=== PATIENT | female | born 1945 | race Caucasian/White ===

== ENCOUNTER 2017-06-19 14:45 | Outpatient (RCR) | payer MEDICARE, BC ==
[~2017-06-19 14:45] MED LIST: ALEVE 220MG220 MG PO; ANTIVERT 25MG25 MG PO; ASPI325T6; ASPI325T6 PO; COMBIGAN 0.2%-010 ML OU; DULCOLAX S10 MG/SUPP RC; HCTZ12.5TAB PO; INDERAL 20MG20 MG PO; LIQUIFILM TEARS15 ML OU; MILK OF MA400 MG/52 PO; MIRAPEX0.5 MG PO; NORCO 325 MG-7.1 TAB PO; ROXICODONE 55 MG/TAB PO; SENOKOT8.6 MG; THERATEARS 15 M15 ML OP; TYLENOL 500MG500 MG PO; ULTRAM 50MG TAB50 MG PO; XALATAN EYE DROPS OU; ZANTAC 150MG T150 MG PO
== END 2017-07-04 10:10 | disposition still patient (30) ==
LOC: WSPT 14:45
DX: M54.40 Lumbago with sciatica, unspecified side (principal); R26.89 Other abnormalities of gait and mobility; Z96.612 Presence of left artificial shoulder joint; Z96.611 Presence of right artificial shoulder joint
CPT/HCPCS: G8978-GP; G8979-GP

== ENCOUNTER 2019-07-20 06:18 | Emergency (ER) | payer MEDICARE, BC ==
[~2019-07-20] VITALS: Ht 167.6 cm; Wt 86.4 kg
[2019-07-20 06:28] VITALS: TEMP 98.4
[2019-07-20 07:23] LABS: COLLECTION METHOD CLEAN CATCH
[2019-07-20 07:33] LABS: MUCOUS Present /lpf; PH 6 (5-8); SQUAMOUS EPITHELIAL None Seen /hpf; URINE APPEARANCE Clear; URINE BACTERIA None Seen /hpf; URINE BILIRUBIN Negative (NEGATIVE); URINE BLOOD Negative (NEGATIVE); URINE COLOR Yellow; URINE GLUCOSE Negative (NEGATIVE); URINE KETONE Negative (NEGATIVE); URINE LEUKOCYTE ESTERASE Negative (NEGATIVE); URINE NITRATE Negative (NEGATIVE); URINE PROTEIN(semi-quant) Negative (NEGATIVE); URINE RBC 0-2 /hpf; URINE UROBILINOGEN Negative (NEGATIVE)
[2019-07-20 07:46] LABS: PROTHROMBIN TIME 11.7 SECONDS (9.7-12.8)
[2019-07-20 07:50] LABS: ALANINE AMINOTRANSFERASE 17 U/L (9-52); ALBUMIN 4.9 gm/dL (3.5-5.0); ALKALINE PHOSPHATASE 147 U/L (50-136); ANION GAP 10 mmol/L (7-16); AST,SGOT 24 U/L (15-37); BILIRUBIN,TOTAL 0.6 mg/dL (0.0-1.0); BLOOD UREA NITROGEN 27 mg/dL (7-17); CALCIUM 10.6 mg/dL (8.4-10.2); CARBON DIOXIDE 30 mmol/L (22-30); CHLORIDE 101 mmol/L (98-107); CREATININE, serum 0.93 (0.52-1.25); GLUCOSE 115 mg/dL (74-106); POTASSIUM 4.1 mmol/L (3.4-5.0); SODIUM 140 mmol/L (137-145); TOTAL PROTEIN 8.7 gm/dL (6.4-8.2)
[2019-07-20 07:56] LABS: BASO % 0.5 % (0.0-2.0); EOS # 0.3 (0.0-0.7); EOS % 3.4 % (0-4.0); GRAN # 5.4 (1.4-6.5); GRAN % 68.1 % (42.2-75.2); HEMATOCRIT 39.5 % (37.0-47.0); HEMOGLOBIN 12.5 g/dl (12.5-16.0); LYMPH # 1.6 (1.2-3.4); LYMPH % 19.7 % (20.0-51.0); MEAN CELL VOLUME 93 fl (80.0-100.0); MEAN CORPUSCULAR HEMOGLOBIN 29 pg (27.0-31.0); MEAN CORPUSCULAR HGB CONC 32 g/dl (33.0-37.0); MEAN PLATELET VOLUME 10.4 fl (7.4-10.4); MONO # 0.6 (0.1-0.6); PLATELET COUNT 355 K/mm3 (130-400); RED BLOOD COUNT 4.27 M/mm3 (4.10-5.30); REDCELL DISTRIBUTION WIDTH-CV 14.7 % (11.5-14.5)
[2019-07-20] MEDS ORDERED: WELLBUTRIN 75MG75 MG PO (08:00)
[2019-07-20] MEDS ORDERED: MELATONIN5 M1 SL (08:00)
[2019-07-20] MEDS ORDERED: ASPIRIN 81M81 MG/TA2 PO (08:01)
[2019-07-20 08:03] LABS: TROPONIN-I < 0.012 ng/mL (0.000-0.035)
[2019-07-20] MEDS ORDERED: NUPLAZID34 MG PO (08:13)
[2019-07-20] MEDS ORDERED: ZANTAC 150MG T150 MG PO (08:15)
[2019-07-20] MEDS ORDERED: PRIL40 PO (08:16)
[2019-07-20] MEDS ORDERED: MOBIC15 MG PO (08:17)
[2019-07-20] MEDS ORDERED: MIRAPEX 1MG PO (08:17)
[2019-07-20] MEDS ORDERED: DITROPAN 5MG TAB5 MG PO (08:17)
[2019-07-20] MEDS ORDERED: HCTZ12.5TAB PO (08:18)
[2019-07-20] MEDS ORDERED: SENNA-S 50 MG-81 TAB PO (08:19)
[2019-07-20] MEDS ORDERED: ZAROXOLYN 2.52.5 MG PO (08:19)
[2019-07-20] MEDS ORDERED: SINEMET CR 50 M1 TER PO (08:20)
[2019-07-20] MEDS ORDERED: CYMBALTA 30MG30 MG PO (08:21)
--- NOTE | 2019-07-20 09:04 | NUR ---
KARMA carey responded to an emergency department consult for the patient due to multiple falls at home with no injuries. KARMA met with the patient and her caregiver, Sandee from [facility]. The patient lives alone five miles outside of [place] and reports her nearest neighbor is half mile away. KARMA student confirmed patient demographics are current. The patient uses a cane at home and a walker when she goes out into the community. The patient and Sandee report the patient cannot use the walker in the home due to having lots of possessions. The patient does not have advanced directives in the electronic medical record but reports they are completed and designate her neice, Sravani Benavides from [place]. The patient reports that Sandee assist with laundry, cooking and drives the patient to appointments. The patient reports she has outpatient physical therapy in [place]. The patient reports she has a brother and two nephews in [place]. KARMA student inquired about her fall. The patient reports she is not always hungry. KARMA student discuss nutritional supplements such as Boost or Ensure. KARMA carey also provided the patient the phone number to our nutritional department if she has any further questions. KARMA carey provided education and several pamphlets for medical alert companies. The patient reports her family has talked about medical alert companies in the past. The patient reports her brother uses a medical alert company and has wanted her to get services. KARMA carey provided information on assisted living facilites in [place] and [place]. Sandee reports the patient's brother and [facility] have discussed assisted living placement in the past. The patient has not wanted to move. KARMA student ask the patient's permission to contact [facility] about current ED visit. The patient did not give KARMA student permission. The patient reports she wants to contact [facility] and brother herself after finding out results of the ED visit. Sandee reports that the family and [facility] have wanted a higher level of care for the patient but the patient has not wanted to move to a facility. KARMA carey collaborated the above information with the patient's nurse and disease case manager rn.
[2019-07-20 09:44] VITALS: BP 147/78; PULSE 75
--- NOTE | 2019-07-20 10:55 | NUR ---
Worker confirmed that the patient does not have home health services with [facility], [facility] or [facility]. KARMA carey contacted the patient's PCP, Dr. Martin and spoke to MONO Phillips. She reports that the patient does not have home health orders through their office. The patient has a yearly physical scheduled on 07/27. KARMA carey contacted Susan the care transition manager at the clinic and left a message. KARMA carey will continue to follow.
--- NOTE | 2019-07-21 09:16 | NUR ---
KARMA student spoke with Susan, insurance healthcare consultant with Dr. Martin office, 07/20. KARMA student informed Susan of the families concerns need for a higher level of care for the patient and also the resources student provided. Susan will meet with the patient on 07/27 and she is to arrange a family meeting. There are no additional needs at this time.
== END 2019-07-20 10:18 | disposition home or self-care (01) ==
LOC: COL.ER 06:18
PROVIDERS: Emergency Medicine
DX: R53.1 Weakness (principal); I10 Essential (primary) hypertension; Z79.82 Long term (current) use of aspirin; Z91.81 History of falling

== ENCOUNTER 2019-08-02 21:09 | Observation (INO) | payer MEDICARE, BC ==
[~2019-08-02] VITALS: Ht 167.6 cm; Wt 88.0 kg
[~2019-08-02 21:09] MED LIST changes: +ASPIRIN 81M81 MG/TA2 PO; +CYMBALTA 30MG30 MG PO; +DITROPAN 5MG TAB5 MG PO; +MELATONIN5 M1 SL; +MIRAPEX 1MG PO; +MOBIC15 MG PO; +NUPLAZID34 MG PO; +PRIL40 PO; +SENNA-S 50 MG-81 TAB PO; +SINEMET CR 50 M1 TER PO; +WELLBUTRIN 75MG75 MG PO; +ZAROXOLYN 2.52.5 MG PO
[2019-08-02 21:38] LABS: COLLECTION METHOD CLEAN CATCH
[2019-08-02 21:43] LABS: PH 5 (5-8); SQUAMOUS EPITHELIAL 0-2 /hpf; URINE APPEARANCE Clear; URINE BACTERIA None Seen /hpf; URINE BILIRUBIN Negative (NEGATIVE); URINE BLOOD Negative (NEGATIVE); URINE COLOR Yellow; URINE GLUCOSE Negative (NEGATIVE); URINE KETONE Negative (NEGATIVE); URINE LEUKOCYTE ESTERASE Negative (NEGATIVE); URINE NITRATE Negative (NEGATIVE); URINE PROTEIN(semi-quant) Negative (NEGATIVE); URINE RBC 0-2 /hpf; URINE UROBILINOGEN Negative (NEGATIVE)
[2019-08-02] MEDS ORDERED: FIBERCON (22:01)
[2019-08-02 22:09] LABS: BASO % 0.3 % (0.0-2.0); EOS # 0.3 (0.0-0.7); GRAN # 6.1 (1.4-6.5); GRAN % 65.6 % (42.2-75.2); HEMOGLOBIN 11.5 g/dl (12.5-16.0); LYMPH # 1.9 (1.2-3.4); LYMPH % 20.7 % (20.0-51.0); MEAN CELL VOLUME 92 fl (80.0-100.0); MEAN CORPUSCULAR HEMOGLOBIN 30 pg (27.0-31.0); MEAN CORPUSCULAR HGB CONC 32 g/dl (33.0-37.0); MEAN PLATELET VOLUME 10.4 fl (7.4-10.4); MONO # 0.9 (0.1-0.6); MONO % 10.1 % (1.7-9.3); PLATELET COUNT 295 K/mm3 (130-400); RED BLOOD COUNT 3.87 M/mm3 (4.10-5.30); REDCELL DISTRIBUTION WIDTH-CV 14.3 % (11.5-14.5)
[2019-08-02 22:10] LABS: HEMATOCRIT 35.7 % (37.0-47.0)
[2019-08-02 22:23] LABS: ALANINE AMINOTRANSFERASE 22 U/L (9-52); ALBUMIN 4.5 gm/dL (3.5-5.0); ALKALINE PHOSPHATASE 144 U/L (50-136); ANION GAP 10 mmol/L (7-16); AST,SGOT 21 U/L (15-37); BILIRUBIN,TOTAL 0.5 mg/dL (0.0-1.0); BLOOD UREA NITROGEN 26 mg/dL (7-17); C-REACTIVE PROTEIN 0.7 mg/dL (0.0-0.9); CALCIUM 9.9 mg/dL (8.4-10.2); CARBON DIOXIDE 28 mmol/L (22-30); CHLORIDE 101 mmol/L (98-107); CREATININE, serum 0.89 (0.52-1.25); GLUCOSE 108 mg/dL (74-106); POTASSIUM 4.1 mmol/L (3.4-5.0); SODIUM 138 mmol/L (137-145); TOTAL PROTEIN 7.9 gm/dL (6.4-8.2)
[2019-08-02 22:34] LABS: TROPONIN-I < 0.012 ng/mL (0.000-0.035)
[2019-08-02 23:25] LABS: ACETAMINOPHEN < 10 ug/mL (10-30); ALCOHOL(ethanol),MEDICAL < 10 mg/dL; SALICYLATE < 1.0 mg/dL
[2019-08-02 23:32] LABS: TRICYCLIC ANTIDEPRESS URINE NEGATIVE
[2019-08-03] VITALS (7 sets, daily range): BP systolic 124–180; BP diastolic 49–83; PULSE 67–78; TEMP 97.6–98.5
[2019-08-03] MEDS ORDERED: COMBIGAN 0.2%-0.5 ML OU (02:00)
[2019-08-03] MEDS ORDERED: TRUSOPT OCUMETE10 ML PO (02:00)
[2019-08-03] MEDS ORDERED: MOBIC15 MG PO (02:02)
[2019-08-03 03:36] LABS: MAGNESIUM 2.2 mg/dL (1.6-2.3); PHOSPHOROUS 3.2 mg/dL (2.5-4.5)
[2019-08-03 04:06] LABS: TSH w REFLEX 3.61 uIU/mL (0.465-4.680)
--- NOTE | 2019-08-03 04:10 | NUR ---
Assessment complete. Alert and oriented x4. Able to answer all questions. Denies any pain, headache, nausea, or any discomfort. Unable to complete med rec, per pt nephew manages medication. Pt came up with own meds that is currently in med room in bin. INT to LT wrist patent, dressing CDI. Pt states having hallucinations, commonly sees a little boy.Pt states being dehydrated. Noted BLE edema.Reviewed POC with pt. Pt understands POC. Needs met. Call light within reach.
--- NOTE | 2019-08-03 07:00 | NUR ---
Report received from HILDA Lockhart. Pt in bed, up to bathroom, using commode d/t low stool. Denies needs, i person assist with walker. Will continue ot monitor.
[2019-08-03 07:04] LABS: BASO % 0.5 % (0.0-2.0); EOS # 0.4 (0.0-0.7); EOS % 5.4 % (0-4.0); GRAN # 3.6 (1.4-6.5); GRAN % 54.2 % (42.2-75.2); HEMOGLOBIN 10.1 g/dl (12.5-16.0); LYMPH # 1.8 (1.2-3.4); LYMPH % 26.8 % (20.0-51.0); MEAN CELL VOLUME 92 fl (80.0-100.0); MEAN CORPUSCULAR HEMOGLOBIN 29 pg (27.0-31.0); MEAN CORPUSCULAR HGB CONC 32 g/dl (33.0-37.0); MEAN PLATELET VOLUME 10.5 fl (7.4-10.4); MONO # 0.9 (0.1-0.6); MONO % 12.8 % (1.7-9.3); PLATELET COUNT 253 K/mm3 (130-400); RED BLOOD COUNT 3.44 M/mm3 (4.10-5.30); REDCELL DISTRIBUTION WIDTH-CV 14.4 % (11.5-14.5)
[2019-08-03 07:14] LABS: CALCIUM 9.2 mg/dL (8.4-10.2); CREATININE, serum 0.81 (0.52-1.25); POTASSIUM 3.9 mmol/L (3.4-5.0)
[2019-08-03 07:18] LABS: HEMATOCRIT 31.6 % (37.0-47.0)
--- NOTE | 2019-08-03 09:17 | NUR ---
Initial visit; Patient thanked Company Doctor for looking in on her and offering God's blessings.
--- NOTE | 2019-08-03 09:44 | NUR ---
Pt resting in bed, sititng up eating breakfast. Oriented, assisted with calling in cell phone. Disucssed plan, will wait for consults to see patinet. Pt denies pain. INT to LW. Doing well, will continue to monitor.
--- NOTE | 2019-08-03 11:18 | NUR ---
Per MONO Deshpande and saw pt attempting to fall over side of bed, making high fall risk, will continue to monitor.
--- NOTE | 2019-08-03 16:01 | NUR ---
Report from MONO Roper
--- NOTE | 2019-08-03 18:03 | NUR ---
Patient resting in bed. A&O, intermittent confusion, nursing staff reorienting patient as needed. VSS. IV CDI. Denies pain and discomfort. Has been calling nursing staff for assistance to the bathroom and voiding each time. No further needs expressed from patient. Call light within reach. Bed alarm on
--- NOTE | 2019-08-03 20:00 | NUR ---
Asssessment complete. Pt sleeping upon entry. Easily awakened to voice. Alert and oriented to self and situation. Pt not oriented to time and place. States that she is at on campus on [facility]. Oriented pt to time and place. Denies any pain or discomfort at this time. Tele leads in place. Medications administered as ordered. INT to Lt wrist patent, flushed, dressing CDI. Voices no concern at this time. Needs met. Call light within reach.
[2019-08-04 03:25] VITALS: BP 135/60; PULSE 58; TEMP 97.3
--- NOTE | 2019-08-04 06:19 | NUR ---
Pt slept throughout the night. uneventful. Medications given as ordered. Fall precautions in place. Call light within reach.
[2019-08-04 06:42] LABS: BASO % 0.7 % (0.0-2.0); EOS # 0.3 (0.0-0.7); EOS % 5.1 % (0-4.0); GRAN # 3.4 (1.4-6.5); GRAN % 55.7 % (42.2-75.2); HEMOGLOBIN 10.5 g/dl (12.5-16.0); LYMPH # 1.7 (1.2-3.4); MEAN CELL VOLUME 92 fl (80.0-100.0); MEAN CORPUSCULAR HEMOGLOBIN 29 pg (27.0-31.0); MEAN CORPUSCULAR HGB CONC 32 g/dl (33.0-37.0); MEAN PLATELET VOLUME 10.8 fl (7.4-10.4); MONO # 0.6 (0.1-0.6); MONO % 10.3 % (1.7-9.3); PLATELET COUNT 265 K/mm3 (130-400); RED BLOOD COUNT 3.57 M/mm3 (4.10-5.30); REDCELL DISTRIBUTION WIDTH-CV 13.9 % (11.5-14.5)
[2019-08-04 06:56] LABS: CALCIUM 9.5 mg/dL (8.4-10.2); CREATININE, serum 1.04 (0.52-1.25); POTASSIUM 4.1 mmol/L (3.4-5.0)
[2019-08-04 07:43] VITALS: BP 146/56; PULSE 68; TEMP 98.4
--- NOTE | 2019-08-04 09:08 | NUR ---
Follow-up visit; Patient thanked for looking in on her and wishing her a good morning.
[2019-08-04] MEDS ORDERED: WELLBUTRIN 75MG75 MG PO (09:54)
[2019-08-04] MEDS ORDERED: SEROQUEL 2525 MG/TAB PO (09:56)
--- NOTE | 2019-08-04 10:30 | NUR ---
(late entry 08/03/19) SENIOR PLANNER student met with the patient to discuss a discharge plan. [place] The patient has a cane and a walker. The patient has a caregiver named Sandee Gutiérrez. The patient reports she pays half of the services and the insurance pays the other half. The patient's PCP is Dr. Martin and patient receives medications from [facility] with no difficulties. Ms. Gutiérrez assist with medication pick-up. The patient does not have advanced directives in the EMR. The patient has a brother named Alexander in [place]. The patient plans to return home upon discharge. There are no addtional needs at this time.
[2019-08-04 11:12] VITALS: BP 141/79; PULSE 90; TEMP 97.7
[2019-08-04 14:54] VITALS: BP 141/79; PULSE 90; TEMP 97.7
--- NOTE | 2019-08-04 14:54 | NUR ---
Keeler Polygraph Operator attended clinical rounds with the team and patient states she does not want to go to Assisted Living but agreed to Home Health servies. NEW met with the patient and presented Medicare.gov list of Home Health agencies that serve the area she lives in. Patient had difficulty choosing and repeated questions about Home Health that NEW had already answered. Patient stated SW could contact her newphew, Robby for assistance. NEW contacted Robby (ph#[phone]) who expressed concerns for patient returning home although understands that patient's choice is not to go to Assisted Living. NEW verbally reviewed Medicare.gov list of Home Health agencies and Robby chose [facility]. NEW faxed referral and will continue to follow.
--- NOTE | 2019-08-04 15:01 | NUR ---
Shed Hand contacted patient's newphew Robby who advised Rosalba from [facility] was going to come visit patient to discuss possible discharge to Assisted Living or other level of care as he has concerns about patient safety returning home. Rosabla contacted NEW following visit with patient and Rosalba advised patient agreed to go to memory care unit at [facility]. Rosalba requested Care Assessment be completed and orders be for moth exterminator care. SW met with patient to complete Care Assessment. SW explained need for CA and patient agreed to answer assessment questions. Following the assessment, SW faxed assessment to [facility] and then provided a copy to the patient. SW contacted patient's brother, Pablo who advised he would picking belt operator patient at 3:00 and take her to [facility]. SW met again with patient and patient expressed confusion with discharge plan and states she is not sure she remembers talking to Rosalba. SW explained her role and reviewed discharge plan with patient including that patient's brother, Pablo will picking belt operator patient at 3:00pm to transport her to [facility] Memory Care Unit. Patient in agreeance. NEW notified Hospitalist and patient RN of transportation arrangements.
--- NOTE | 2019-08-04 15:10 | NUR ---
Distributor Advertising Material faxed discharge orders and Care Assessment to [facility]. SW contacted Rosalba who confirmed the orders were received.
--- NOTE | 2019-08-04 15:44 | NUR ---
Patient transferring to [facility]/ memory unit, She is leaving with her nephew Jimbo, i have removed her IV site, I have attempted to call report and they receiving nurse said she would call me back for report
== END 2019-08-04 15:48 | disposition home or self-care (01) ==
LOC: COL.ER 21:09 → MEDICAL 08-03 01:36
PROVIDERS: Emergency Medicine; Nurse Practitioner Family; ADMIT Hospitalist
DX: G31.84 Mild cognitive impairment of uncertain or unknown etiology (principal); R44.3 Hallucinations, unspecified; R53.1 Weakness; I10 Essential (primary) hypertension; E78.5 Hyperlipidemia, unspecified; G20 Parkinson's disease; G25.81 Restless legs syndrome; H40.9 Unspecified glaucoma; Z87.891 Personal history of nicotine dependence; Z82.49 Family history of ischemic heart disease and other diseases of the circulatory system; Z82.3 Family history of stroke
CPT/HCPCS: A9585; G0378; J7030

== ENCOUNTER 2019-11-25 16:22 | Emergency (ER) | payer MEDICARE, BC ==
[~2019-11-25] VITALS: Ht 167.6 cm; Wt 80.9 kg
[~2019-11-25 16:22] MED LIST changes: +COMBIGAN 0.2%-0.5 ML OU; +FIBERCON; +SEROQUEL 2525 MG/TAB PO; +TRUSOPT OCUMETE10 ML PO
[2019-11-25] MEDS ORDERED: SEROQUEL 1100 MG/TAB PO (17:06)
[2019-11-25 17:27] VITALS: BP 126/70; PULSE 68; TEMP 98
== END 2019-11-25 17:28 | disposition home or self-care (01) ==
LOC: COL.ER 16:22
DX: S00.93XA Contusion of unspecified part of head, initial encounter (principal); W01.0XXA Fall on same level from slipping, tripping and stumbling without subsequent striking against object, initial encounter; Y92.099 Unspecified place in other non-institutional residence as the place of occurrence of the external cause

== ENCOUNTER 2020-01-01 09:43 | Inpatient (IN) | payer MEDICARE, BC ==
[2020-01-01] VITALS (343 sets, daily range): BP systolic 103–164; BP diastolic 58–82; PULSE 56–64; TEMP 98.3–98.6; O2SAT 76–100
[~2020-01-01] VITALS: Ht 175.3 cm; Wt 74.1 kg
[~2020-01-01 09:43] MED LIST changes: +SEROQUEL 1100 MG/TAB PO
[2020-01-01 10:30] LABS: BASO % 0.3 % (0.0-2.0); EOS # 0.1 (0.0-0.7); EOS % 1.3 % (0-4.0); GRAN # 4.7 (1.4-6.5); GRAN % 67.3 % (42.2-75.2); HEMATOCRIT 40.2 % (37.0-47.0); HEMOGLOBIN 13.1 g/dl (12.5-16.0); LYMPH # 1.5 (1.2-3.4); LYMPH % 21.5 % (20.0-51.0); MEAN CELL VOLUME 84 fl (80.0-100.0); MEAN CORPUSCULAR HEMOGLOBIN 27 pg (27.0-31.0); MEAN CORPUSCULAR HGB CONC 33 g/dl (33.0-37.0); MEAN PLATELET VOLUME 10.8 fl (7.4-10.4); MONO # 0.7 (0.1-0.6); MONO % 9.3 % (1.7-9.3); PLATELET COUNT 245 K/mm3 (130-400); REDCELL DISTRIBUTION WIDTH-CV 15.6 % (11.5-14.5)
[2020-01-01 10:40] LABS: COLLECTION METHOD CLEAN CATCH
[2020-01-01 10:47] LABS: MUCOUS Present /lpf; PH 6 (5-8); SQUAMOUS EPITHELIAL 0-2 /hpf; URINE APPEARANCE Clear; URINE BACTERIA None Seen /hpf; URINE BILIRUBIN Negative (NEGATIVE); URINE BLOOD Negative (NEGATIVE); URINE COLOR Yellow; URINE GLUCOSE Negative (NEGATIVE); URINE KETONE Negative (NEGATIVE); URINE LEUKOCYTE ESTERASE Negative (NEGATIVE); URINE NITRATE Negative (NEGATIVE); URINE PROTEIN(semi-quant) Negative (NEGATIVE); URINE RBC 0-2 /hpf; URINE UROBILINOGEN Negative (NEGATIVE)
[2020-01-01 10:50] LABS: ALANINE AMINOTRANSFERASE 12 U/L (4-34); ALBUMIN 4.5 gm/dL (3.5-5.0); ALKALINE PHOSPHATASE 175 U/L (50-136); ANION GAP 10 mmol/L (7-16); AST,SGOT 37 U/L (15-37); BILIRUBIN,TOTAL 0.6 mg/dL (0.0-1.0); BLOOD UREA NITROGEN 21 mg/dL (7-17); CALCIUM 10.2 mg/dL (8.4-10.2); CARBON DIOXIDE 27 mmol/L (22-30); CHLORIDE 99 mmol/L (98-107); CREATININE, serum 0.91 (0.52-1.25); GLUCOSE 118 mg/dL (74-106); POTASSIUM 3.3 mmol/L (3.4-5.0); SODIUM 136 mmol/L (137-145); TOTAL PROTEIN 8.7 gm/dL (6.4-8.2)
[2020-01-01 11:25] LABS: TROPONIN-I < 0.012 ng/mL (0.000-0.035)
[2020-01-01] MEDS ORDERED: COSOPT 2%-0.5%10 ML OU (12:18)
[2020-01-01] MEDS ORDERED: FIBER0.52 GM PO (12:19)
[2020-01-01] MEDS ORDERED: COMBIGAN 0.2%-0.5 ML OS (12:21)
[2020-01-01] MEDS ORDERED: ZAROXOLYN 2.52.5 MG PO (12:24)
[2020-01-01] MEDS ORDERED: NUPLAZID34 MG PO (12:26)
[2020-01-01] MEDS ORDERED: SENNA-LAX8.6 MG PO (12:28)
[2020-01-01] MEDS ORDERED: SEROQUEL 2525 MG/TAB PO (12:30)
[2020-01-01 13:04] LABS: TSH w REFLEX 2.54 uIU/mL (0.465-4.680)
--- NOTE | 2020-01-01 16:19 | NUR ---
MD Pedro Luis called to notify EEG cannot be completed on weekend - no answer - detailed message left
[2020-01-01] MEDS ORDERED: COMBIGAN 0.2%-0.5 ML OU (16:26)
[2020-01-01] MEDS ORDERED: ANTIVERT 12.512.5 MG PO (16:28)
[2020-01-01] MEDS ORDERED: CEPHALEXIN500 M1 PO (16:31)
--- NOTE | 2020-01-01 17:05 | NUR ---
MD Isidro in room
--- NOTE | 2020-01-01 17:55 | NUR ---
Sravani (DPOA) called and left message regarding bringing 2 medications pharmacy does not keep in store here
--- NOTE | 2020-01-01 19:15 | NUR ---
Bedside report receivd from MONO Beltran. Transfer of care at this time.
--- NOTE | 2020-01-01 20:00 | NUR ---
Assessment complete. Patient resting in bed watching TV. Patient is partially oriented. She is aware of where she is, but doesnt know the circumstances or how she got here. No complaints of pain or dizziness. Assessment does not reveal any significant findings. Will continue to monitor. Call light within reach.
[2020-01-02] VITALS (344 sets, daily range): BP systolic 101–140; BP diastolic 57–75; PULSE 45–73; TEMP 97.8–98.6; O2SAT 79–100
--- NOTE | 2020-01-02 | NUR ---
Assessment complete with no significant changes from previous exam. Patient remains partially oriented. Patient has tried to climb out of bed several times, but doesnt know what she is trying to get. Assisted back to bed. Patient resting now. Will continue to monitor. Call light within reach. Bed alarm on
--- NOTE | 2020-01-02 05:22 | NUR ---
Patient trying to climb out of bed again. She refuses to follow commands and flings her legs over the top of the side rails. Assisted patient back to bed. Patient pretends to not hear this nurses directions and closes her eyes. Patient repositioned manually so she is not on top of the side rail. Patient made comfortable. Bed alarm on.
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
[2020-01-02 05:48] LABS: BASO % 0.3 % (0.0-2.0); EOS # 0.1 (0.0-0.7); EOS % 1.6 % (0-4.0); GRAN # 3.1 (1.4-6.5); GRAN % 50.3 % (42.2-75.2); LYMPH # 2.3 (1.2-3.4); LYMPH % 36.2 % (20.0-51.0); MEAN CELL VOLUME 85 fl (80.0-100.0); MEAN CORPUSCULAR HGB CONC 32 g/dl (33.0-37.0); MEAN PLATELET VOLUME 10.8 fl (7.4-10.4); MONO # 0.7 (0.1-0.6); MONO % 11.4 % (1.7-9.3); PLATELET COUNT 247 K/mm3 (130-400); REDCELL DISTRIBUTION WIDTH-CV 15.9 % (11.5-14.5)
[2020-01-02 05:52] LABS: CALCIUM 9.5 mg/dL (8.4-10.2); CREATININE, serum 0.9 (0.52-1.25); POTASSIUM 3.7 mmol/L (3.4-5.0)
[2020-01-02 05:53] LABS: HEMATOCRIT 34.8 % (37.0-47.0); HEMOGLOBIN 11.1 g/dl (12.5-16.0); MEAN CORPUSCULAR HEMOGLOBIN 27 pg (27.0-31.0)
--- NOTE | 2020-01-02 06:00 | NUR ---
Patient attempted to stand up two more times after last reported episode. Patient is very paranoid and refuses to take dose of seroquel. Patient had pulled out external purewick catheter and then voided on the pad under her. Patient cleaned up and new pad placed. Patient now resting. Will continue to monitor. Bed alarm on
--- NOTE | 2020-01-02 07:18 | NUR ---
Bedside report given to MONO Beltran
--- NOTE | 2020-01-02 10:00 | NUR ---
Loop Recorder Interrogation performed - [employer] lead generation representative notified by MD Lashell who is in room with pt
--- NOTE | 2020-01-02 12:05 | NUR ---
Report phoned to MONO Zavala
--- NOTE | 2020-01-02 17:59 | NUR ---
Patient arrived to room at 1230 and is eating lunch. She is alert and smiling, is noted to be confused. Was talking about cheese sauce earlier in the shift. She has had external female catheter replaced and has been repositioned in the bed. Denying pain. Respirations are even and nonlabored, lungs clear. Pt is noted to be NSR on tele. Did receive call regarding patients rhythm earlier, was noted to be erratic, did check on patient and she was shaking arms. Denied pain, stated she had an itch on her neck. Abdomen is soft and nontender. BLEs with slight edema. Pain denied. Call light and personal items are within reach.
--- NOTE | 2020-01-02 20:33 | NUR ---
Patient resting in bed. Upon arrival in room patient reports confusion to date and time. Reorientated patient. Also attempted to pull out IV in right wrist. Dressing changed and wrapped. Flushed without complications. Assessment complete. Lungs clear. Heart sounds normal. Bowels active x4. Pulses present throughout. Bilateral lower edema +2. Purwick in place. Denies pain. Provided with ice cream. Denies other needs. Call light in reach.
--- NOTE | 2020-01-02 22:06 | NUR ---
Resting in bed asleep. Call light in reach.
[2020-01-03 00:13] VITALS: BP 104/58
--- NOTE | 2020-01-03 00:57 | NUR ---
Patient combative to staff. Attempted to check purwick. Patient refusing. Will monitor.
[2020-01-03 04:07] VITALS: BP 107/54; PULSE 67; TEMP 98.4
--- NOTE | 2020-01-03 04:52 | NUR ---
External cath changed. Patient tolerated well. Denies needs. Call light in reach.
--- NOTE | 2020-01-03 06:34 | NUR ---
Patient had x1 episode being combative with staff. Otherwise uneventful night. Resting in bed this AM. Purewick catheter changed. Denies needs this AM. Call light in reach.
[2020-01-03 07:30] VITALS: PULSE 70; TEMP 97.8
--- NOTE | 2020-01-03 07:39 | NUR ---
Report given to MONO Mina
[2020-01-03 08:20] LABS: BASO % 0.4 % (0.0-2.0); EOS # 0.2 (0.0-0.7); EOS % 2.7 % (0-4.0); GRAN # 4.6 (1.4-6.5); GRAN % 64.3 % (42.2-75.2); HEMATOCRIT 37.7 % (37.0-47.0); LYMPH # 1.7 (1.2-3.4); LYMPH % 23.9 % (20.0-51.0); MEAN CELL VOLUME 86 fl (80.0-100.0); MEAN CORPUSCULAR HEMOGLOBIN 27 pg (27.0-31.0); MEAN CORPUSCULAR HGB CONC 32 g/dl (33.0-37.0); MEAN PLATELET VOLUME 10.1 fl (7.4-10.4); MONO # 0.6 (0.1-0.6); MONO % 8.6 % (1.7-9.3); PLATELET COUNT 259 K/mm3 (130-400); RED BLOOD COUNT 4.41 M/mm3 (4.10-5.30); REDCELL DISTRIBUTION WIDTH-CV 16.1 % (11.5-14.5)
[2020-01-03 08:32] LABS: CALCIUM 9.5 mg/dL (8.4-10.2); CREATININE, serum 1.1 (0.52-1.25); POTASSIUM 3.7 mmol/L (3.4-5.0)
--- NOTE | 2020-01-03 10:35 | NUR ---
Pt assessment completed and charted. Medications administered per NOV. Pt is awake and alert, oriented at this time, cooperative w/ cares. Pt denies any pain, chest pain, N/V/D, SOB. Pt has female external catheter that was changed this morning, had not been suctioning properly and soaked bed. Complete bed change, robinson care and bed bath provided. RFA INT IV flushes w/o complications. Pt on room air, breathing is even and unlabored. No further needs at this time.
[2020-01-03 11:32] VITALS: BP 141/62; PULSE 62; TEMP 98.5
--- NOTE | 2020-01-03 16:26 | NUR ---
SW met with patient at her door to complete discharge assessment, however patient seemed tired and spoke very softly so SW contacted patient's DPOA to complete assessment. Patient has been residing at [facility] in [facility] for the last month. Patients DPOA is Sravani [phone]. Patient utilizes a walker and a toliet rise, and her PCP is Dr. Martinez Martin. Per patient her last appointment was cancelled. patient indicated that she receives her medications from [facility] with no concerns. Patient receives all of her care at the snf indicated, however patient's DPOa had wanted to have patients neuro care trasnferred to Dr. Jay here in [place], and she wanted to be contacted about patient's care.SW will continue to follow up.
[2020-01-03 16:35] VITALS: BP 143/69; PULSE 70; TEMP 97.9
[2020-01-03 19:15] VITALS: BP 112/61; PULSE 75; TEMP 98.4
--- NOTE | 2020-01-03 19:15 | NUR ---
Received report from Keeley. Seen patient awake, sitting in the recliner. Patient states she needs to go to the bathroom. Bedside commode was offered instead. Patient was trying to have bowel movement. With INT on right wrist. Denies any pain. With walker on the bedside.
--- NOTE | 2020-01-03 19:41 | NUR ---
Pt had uneventful day. External catheter removed. Pt assisted to recliner at bedside. Fall precautions in place. Pt had intermittent confusion throughout day, cooperative with cares, ate well throughout day. No further needs expressed. Report given to MONO Irving.
--- NOTE | 2020-01-03 20:15 | NUR ---
Due medications were given. This nurse asked the patient if she wants to go back to bed from the recliner but she refuses. Chair alarm was on.
[2020-01-04] VITALS (7 sets, daily range): BP systolic 91–154; BP diastolic 50–72; PULSE 52–79; TEMP 97.4–98.5
--- NOTE | 2020-01-04 03:04 | NUR ---
Went into pt room at 0245 pt was sitting in the recliner sleeping. Pt was lending so I asked her with assistance could I help her get to the bed. Pt was assisted with another nurse to the bed. Pt stated she is not having any pain in the chair but agreed that for safety reasons she was ok with sleeping in the bed. Pt is currently sleeping in bed and her call light is within reach and her bed is in lowest position and the alarm is on at this time.
--- NOTE | 2020-01-04 04:22 | NUR ---
Pt is currently lying in bed at this time. Pt did wake up when I asked if I could check her vitals and do her neuro checks. Pt has nothing abnormal at this time. Her vitals were within normal limits. Pts heart sounds were normal S1 and S2 sounds, lungs sounds were clear in all lobes. Bowel sounds were hypoactive in all quads. Pt has IV in her right forearm, not signs of redness or no complaints of pain at the site of the INT. Pt is currently resting in bed with her call light within reach and her bed is in lowest position.
--- NOTE | 2020-01-04 05:39 | NUR ---
Pt ambulated to the restroom with walker and gait belt one assist. Pt did have some incontinence in her brief. Breif was changed at this time and pt was cleansed with wipes, she was able to void at this time. Pt has her call light within reach and her bed is in lowest position and the alarm is on.
[2020-01-04 06:07] LABS: BASO % 0.3 % (0.0-2.0); EOS # 0.2 (0.0-0.7); GRAN # 4.1 (1.4-6.5); GRAN % 58.6 % (42.2-75.2); HEMOGLOBIN 11.9 g/dl (12.5-16.0); LYMPH % 28.4 % (20.0-51.0); MEAN CELL VOLUME 86 fl (80.0-100.0); MEAN CORPUSCULAR HEMOGLOBIN 28 pg (27.0-31.0); MEAN CORPUSCULAR HGB CONC 32 g/dl (33.0-37.0); MEAN PLATELET VOLUME 11.3 fl (7.4-10.4); MONO # 0.7 (0.1-0.6); MONO % 9.4 % (1.7-9.3); PLATELET COUNT 270 K/mm3 (130-400); RED BLOOD COUNT 4.28 M/mm3 (4.10-5.30)
[2020-01-04 06:13] LABS: HEMATOCRIT 36.8 % (37.0-47.0)
[2020-01-04 06:21] LABS: CALCIUM 9.3 mg/dL (8.4-10.2); CREATININE, serum 1.44 (0.52-1.25); POTASSIUM 3.6 mmol/L (3.4-5.0)
--- NOTE | 2020-01-04 07:20 | NUR ---
Reported off to MONO Mccabe. Pt is currently lying in bed. Pt has her call light within reach and her bed is in lowest position.
--- NOTE | 2020-01-04 11:16 | NUR ---
First visit from the snow technician. No needs right now.
--- NOTE | 2020-01-04 11:27 | NUR ---
Pt assesment completed and charted. medications administered per MAR. Pt is alert, partially oriented, some confused conversation and reorientation needed. Pt was a little irritated when asked her birthdate, asked "how many times do i have to answer that". Pt is cooperative with cares. IVF started to RWR @125 ml/hr w/o complications. Pt denies any pain at this time. Pt walked with therapy, stated she had some dizziness, educated regional vice president life sales light, fall precautions in place. Pt currently up to recliner at this time. this nurse spoke with STEFANIA gloria, update given. No further needs at this time.
--- NOTE | 2020-01-04 12:54 | NUR ---
Talked w/ faizan, STEFANIA for pt, discussed POC, verbalized understanding. All questions answered at this time. Will continue to keep updated.
--- NOTE | 2020-01-04 14:43 | NUR ---
Social Work Faculty Member contacted patient's DPOA-Anita to review discharge plan. Anita advised that patient is from [facility] and that she would like for patient to return there if possible. Anita states that a move to another post acute rehab facility may not be beneficial for patient. Anita is agreeable to Home Health Services at [facility] and selected [facility]. NEW contacted Lenora at [facility] and faxed referral. NEW spoke with MONO Paez at [facility] who advised they are able to work with services for patients. Jeannine reports they can provide transport for patient upon discharge. NEW faxed updates to Jeannine at [facility]. NEW spoke with COLE Phillips and advised that Anita would like patient to switch Neurologists from from Dr. Owen Torres to Dr. Elliott. SW to continue to follow.
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
--- NOTE | 2020-01-05 04:48 | NUR ---
PATIENT HAS HAD AN EVENTFUL NIGHT, EVIDENT BY THE PREVIOUS NURSING NOTE MADE BY THIS NURSE. PATIENT APPEARED TO BE DREAMING AND WITH THE DREAMS SHE WOULD HOLLAR AND WHEN CHECKING ON THE PATIENT SHE WOULD NOT COME OUT OF THE DREAM FOR AWHILE. PATIENT HAS HAD NUMEROUS TIMES WHERE SHE IS AWAKE BUT WHEN ASKED QUESTIONS, SHE IS STARING IN SPACE AND WILL NOT ANSWER YOU BACK. WILL REPORT ALL THIS INFORMATION ON TO DAY SHIFT.
[2020-01-05 06:33] LABS: BASO % 0.3 % (0.0-2.0); EOS # 0.2 (0.0-0.7); EOS % 2.9 % (0-4.0); GRAN # 3.6 (1.4-6.5); GRAN % 58.4 % (42.2-75.2); HEMOGLOBIN 11.2 g/dl (12.5-16.0); LYMPH # 1.9 (1.2-3.4); LYMPH % 30.7 % (20.0-51.0); MEAN CELL VOLUME 86 fl (80.0-100.0); MEAN CORPUSCULAR HEMOGLOBIN 27 pg (27.0-31.0); MEAN CORPUSCULAR HGB CONC 32 g/dl (33.0-37.0); MEAN PLATELET VOLUME 11.2 fl (7.4-10.4); MONO # 0.5 (0.1-0.6); MONO % 7.5 % (1.7-9.3); PLATELET COUNT 250 K/mm3 (130-400); RED BLOOD COUNT 4.16 M/mm3 (4.10-5.30); REDCELL DISTRIBUTION WIDTH-CV 15.9 % (11.5-14.5)
[2020-01-05 06:42] LABS: CALCIUM 9.5 mg/dL (8.4-10.2); CREATININE, serum 0.92 (0.52-1.25)
[2020-01-05 07:05] LABS: HEMATOCRIT 35.6 % (37.0-47.0)
[2020-01-05 08:25] VITALS: BP 100/66; PULSE 77; TEMP 97.4
--- NOTE | 2020-01-05 09:06 | NUR ---
Pt assessment completed and charted, medications administered per NOV. Pt sitting in recliner after walking with therapy. Pt is alert, partially oriented, clouded/confused conversation. Pt on room air, breathing even and unlabored. RWR INT IV flushes w/o complications. pt denies chest pain, n/v/d, sob. Pt states she has some dizziness with walking with therapy. No other concerns expressed at this time. Chair alarm and fall risk precautions in place.
[2020-01-05] MEDS ORDERED: NORVASC 10MG10 MG PO (09:57)
[2020-01-05] MEDS ORDERED: ASPIRIN E.C. 8181 MG PO (10:00)
[2020-01-05] MEDS ORDERED: CYMBALTA 20MG20 MG PO (10:00)
[2020-01-05] MEDS ORDERED: ZYPREXA 5MG5 MG PO (10:04)
[2020-01-05] MEDS ORDERED: ZOLOFT 25MG25 MG PO (10:06)
[2020-01-05] MEDS ORDERED: ZOLOFT 50MG50 MG PO (10:07)
--- NOTE | 2020-01-05 11:38 | NUR ---
Sales Facilitator attended clinical rounds and patient to discharge back to [facility]. NEW contacted MONO Paez at [facility] and set transport time for 1400. NEW provided transport time to patient and to Keeley [facility]. NEW contacted patient's DPOAAnita to provide update. NEW read IM form aloud to Anita who verbalized understanding and provided verbal consent. NEW placed form in the chart. NEW faxed discharge orders and COVID19 transfer assessment to Jeannine at [facility]. NEW contacted [facility] and faxed discharge orders. No additional needs at this time.
[2020-01-05 12:40] VITALS: BP 116/62; PULSE 70; TEMP 98.5
--- NOTE | 2020-01-05 13:59 | NUR ---
Pt assisted in getting ready by YONATAN Smith. RWR INT IV dc'd w/ catheter tip intact and no complications. Pt escorted out via WC by this nurse, helped into car with receiving nurse driving her to facility. No further needs.
== END 2020-01-05 14:21 | disposition home or self-care (01) | DRG 305 ==
LOC: COL.ER 09:43 → ICU 13:07 → EU 15:18 → ICU 15:19 → MEDICAL 01-02 12:44
PROVIDERS: Emergency Medicine; Hospitalist; Physician Assistant; ADMIT Student in an Organized Health Care Education/Training Program
DX: I16.1 Hypertensive emergency (principal); I67.4 Hypertensive encephalopathy; E87.2 Acidosis; E87.3 Alkalosis; I38 Endocarditis, valve unspecified; N17.9 Acute kidney failure, unspecified; R44.0 Auditory hallucinations; I10 Essential (primary) hypertension; E78.5 Hyperlipidemia, unspecified; G20 Parkinson's disease; H40.9 Unspecified glaucoma; R41.0 Disorientation, unspecified; G25.81 Restless legs syndrome; E87.8 Other disorders of electrolyte and fluid balance, not elsewhere classified; R44.1 Visual hallucinations; F32.9 Major depressive disorder, single episode, unspecified; E87.6 Hypokalemia; K21.9 Gastro-esophageal reflux disease without esophagitis; N32.81 Overactive bladder; Z87.891 Personal history of nicotine dependence
CPT/HCPCS: 99223-AI; 99232-AI; 99239; J1644; J1650; J1953; J7030; J7050; Q9967

== ENCOUNTER 2020-09-20 13:18 | Inpatient (IN) | payer MEDICARE, BC ==
[~2020-09-20] VITALS: Ht 167.6 cm; Wt 73.7 kg
[~2020-09-20 13:18] MED LIST changes: +ANTIVERT 12.512.5 MG PO; +ASPIRIN E.C. 8181 MG PO; +CEPHALEXIN500 M1 PO; +COMBIGAN 0.2%-0.5 ML OS; +COSOPT 2%-0.5%10 ML OU; +CYMBALTA 20MG20 MG PO; +FIBER0.52 GM PO; +NORVASC 10MG10 MG PO; +SENNA-LAX8.6 MG PO; +ZOLOFT 25MG25 MG PO; +ZOLOFT 50MG50 MG PO; +ZYPREXA 5MG5 MG PO
[2020-09-20 13:46] LABS: ARTERIAL BLD GAS O2 SATURATION 92.7 % (92-100); ARTERIAL BLD GAS TCO2 CT 33.9; ARTERIAL BLOOD GAS BASE EXCESS 9.6 (-2-2); ARTERIAL BLOOD GAS HCO3 32.7 meq/L (22-26); ARTERIAL BLOOD GAS PCO2 38.8 mmHg (35-45); ARTERIAL BLOOD GAS PO2 59.9 mmHg (80-100); ARTERIAL BLOOD GAS pH 7.54 (7.35-7.45)
[2020-09-20 14:08] LABS: BASO % 0.1 % (0.0-2.0); GRAN # 7.7 (1.4-6.5); GRAN % 84.2 % (42.2-75.2); HEMOGLOBIN 12.3 g/dl (12.5-16.0); LYMPH # 0.9 (1.2-3.4); LYMPH % 9.9 % (20.0-51.0); MEAN CELL VOLUME 80 fl (80.0-100.0); MEAN CORPUSCULAR HEMOGLOBIN 27 pg (27.0-31.0); MEAN CORPUSCULAR HGB CONC 34 g/dl (33.0-37.0); MEAN PLATELET VOLUME 10.6 fl (7.4-10.4); MONO # 0.5 (0.1-0.6); PLATELET COUNT 295 K/mm3 (130-400); RED BLOOD COUNT 4.59 M/mm3 (4.10-5.30); REDCELL DISTRIBUTION WIDTH-CV 14.9 % (11.5-14.5)
[2020-09-20 14:09] LABS: HEMATOCRIT 36.5 % (37.0-47.0)
[2020-09-20 14:23] LABS: ALANINE AMINOTRANSFERASE 11 U/L (4-34); ALKALINE PHOSPHATASE 149 U/L (50-136); ANION GAP 11 mmol/L (7-16); AST,SGOT 41 U/L (15-37); BILIRUBIN,TOTAL 0.7 mg/dL (0.0-1.0); BLOOD UREA NITROGEN 43 mg/dL (7-17); CALCIUM 9.4 mg/dL (8.4-10.2); CARBON DIOXIDE 35 mmol/L (22-30); CREATININE, serum 1.27 (0.52-1.25); GLUCOSE 118 mg/dL (74-106); SODIUM 131 mmol/L (137-145); TOTAL PROTEIN 7.8 gm/dL (6.4-8.2)
[2020-09-20 14:33] LABS: C-REACTIVE PROTEIN 22.8 mg/dL (0.0-0.9); CHLORIDE 86 mmol/L (98-107); POTASSIUM 2.9 mmol/L (3.4-5.0); TROPONIN-I < 0.012 ng/mL (0.000-0.035)
[2020-09-20] MEDS ORDERED: DECADRON6 MG PO (15:43)
[2020-09-20] MEDS ORDERED: LASIX 20MG TABL20 MG PO (15:43)
[2020-09-20] MEDS ORDERED: FIBER0.52 GM PO (15:44)
[2020-09-20] MEDS ORDERED: XALATAN EYE DROPS OU (15:45)
[2020-09-20] MEDS ORDERED: ZAROXOLYN 2.52.5 MG PO (15:46)
[2020-09-20] MEDS ORDERED: MIRAPEX 1MG PO (15:47)
[2020-09-20] MEDS ORDERED: KLOR-CON SPRIN10 MEQ PO (15:48)
[2020-09-20] MEDS ORDERED: REFRESH TEARS 330 ML OU (15:49)
[2020-09-20] MEDS ORDERED: SEROQUEL 1100 MG/TAB PO (15:50)
[2020-09-20] MEDS ORDERED: ZOLOFT 100MG100 MG PO (15:51)
[2020-09-20] MEDS ORDERED: SEROQUEL 2525 MG/TAB PO (15:51)
[2020-09-20] MEDS ORDERED: ROBITUSSIN DM 105 ML PO (16:00)
[2020-09-20] MEDS ORDERED: MOTRIN 600600 MG/TAB PO (16:00)
[2020-09-20] MEDS ORDERED: TYLENOL 500MG500 MG PO (16:01)
--- NOTE | 2020-09-20 17:45 | NUR ---
PATIENT ADMITED INTO ROOM 309 VIA WC FROM ER. PATIENT IS ALERT BUT CONFUSED. PATIENT MUMBLES AND DISPLAYS WORD SALAD. PATIENT IS UNABLE TO ANSWER QUESTIONS BUT DOES FOLLOW MOST VERABL COMANDS. PATIENT ADMITED WITH ARVO AT 60L WITH SATS AT 95%. A&P LUNG BASES DEMINISHED. IV FLUIDS INFUSING INTO LEFT FORARM IV. PATIENT PULLED OUT PREVIOUS IV IN ER. PATIENT ALSO SPIT OUT ORAL ZITHROMAX. ONCE ON FLOOR, NURSING GAVE PATIENT HER ORAL POTASSIUM IN OJ AND SHE IS DRINKING IT. NEW IV SITE IS [facility]. BED ALARM IS ON. INCONTINENT, BRIEF INPLACE. HEAD TO TOE ASSESSMENT COMPLETE. HEALTH HX AND MEDS OBTAINED FROM [facility]. CALLED FAMILY, PATIENT IS NOW A DNR.
[2020-09-20 18:15] VITALS: BP 111/85; PULSE 74; TEMP 98.5
[2020-09-20 20:36] VITALS: BP 163/89; PULSE 75; TEMP 98.4
[2020-09-20 20:38] VITALS: BP 127/58; PULSE 65; TEMP 99.4
--- NOTE | 2020-09-20 23:48 | NUR ---
Patient laying in bed, appears confused. Patient mumbles and difficult to understand. Patient currently on Airvo 60L and 73%. Breathing even and unlabored. Patient keeps pulling off her oxygen and trying to pull out IV. Mittens applied to bilateral hands. Incontinent brief changed and She-care provided. Applied Purewick external catheter. IV fluid infusing well to left forearm. Left forearm IV site has no s/s of complications. Scheduled meds given per order. Meds crushed and mixed in chocolate pudding. Patient took medications without difficulty. Fall precaution and isolation precaution maintained.
[2020-09-21] VITALS (7 sets, daily range): BP systolic 108–132; BP diastolic 52–81; PULSE 58–72; TEMP 98.2–99.1
--- NOTE | 2020-09-21 07:00 | NUR ---
Report received from MONO Galvez. PT in bed resting, will continue to monitor.
--- NOTE | 2020-09-21 07:15 | NUR ---
Potassium level 3.1 at 02:10 am. Potassium replaced per protocol. 4 potassium bags via IV given for this shift. Call light within reach.
[2020-09-21 07:48] LABS: ALBUMIN 3.6 gm/dL (3.5-5.0); BILIRUBIN,TOTAL 0.5 mg/dL (0.0-1.0); CREATININE, serum 1.02 (0.52-1.25); POTASSIUM 3.3 mmol/L (3.4-5.0)
[2020-09-21 07:50] LABS: BASO % 0.1 % (0.0-2.0); GRAN # 6.8 (1.4-6.5); GRAN % 82.9 % (42.2-75.2); LYMPH # 0.9 (1.2-3.4); LYMPH % 11.2 % (20.0-51.0); MEAN CELL VOLUME 80 fl (80.0-100.0); MEAN CORPUSCULAR HEMOGLOBIN 26 pg (27.0-31.0); MEAN CORPUSCULAR HGB CONC 33 g/dl (33.0-37.0); MEAN PLATELET VOLUME 10.5 fl (7.4-10.4); MONO # 0.4 (0.1-0.6); PLATELET COUNT 322 K/mm3 (130-400); RED BLOOD COUNT 4.23 M/mm3 (4.10-5.30); REDCELL DISTRIBUTION WIDTH-CV 14.9 % (11.5-14.5)
[2020-09-21 08:20] LABS: HEMATOCRIT 33.7 % (37.0-47.0)
--- NOTE | 2020-09-21 09:05 | NUR ---
Assessment charted. Spoke to STEFANIA Howard and also called her from pt's room per here request. pt is very slow to respond but able to tell me and year, not sure of month or location. Pt states she is having pain in bilat heels, floating per her request and will give tylenol. IVF to LFA. Purewick in place draining urine well. Fed some breakfast and water, pt unable to feed self or even hold cup of water on own. Pt not tryiong to remove own IV or pick, will let rest and continue to monitor.
--- NOTE | 2020-09-21 13:32 | NUR ---
Update provided to [facility]
--- NOTE | 2020-09-21 15:26 | NUR ---
The patient is Covid positive. Mortuary Beautician contacted the patient's niece, Anita Benavides (one of the [facility]) to complete initial intake. The patient has lived at [facility] the [facility] since November. The plan is to return there at discharge. The patient receives assistance with ADLs and uses a walker to ambulate. The patient's PCP is Martinez Diane and patient has medications delivered from [facility]. The patient has advanced directives in the EMR. Pulmonary Consulted. PT/OT/ST ordered. SW to fax updates to [facility] the [facility].
--- NOTE | 2020-09-21 17:50 | NUR ---
Pt resting in bed, has been in mitts since PICC placement this afternoon as she did get agitated. Pt is mostly oriented but very difficult to hear her speech as it is very quiet and she does not move lips well. Bed alarm on, pt has not set if off today but does move around in bed often. Purewick draining urine well. Arcelia clear. Will give report to nightshift nruse who will resume care.
--- NOTE | 2020-09-22 01:07 | NUR ---
Patient alert but not oriented. Slow to answer questions and difficult to understand speech. Bring patient downstairs to do CT scan around 8 pm. Patient refused dinner. Purewick draining clear yellow urine. Left upper arm PICC site clean/dry/intact. Scheduled meds given per NOV. Call light within reach. Patient denies needs at this time.
[2020-09-22 04:19] VITALS: BP 136/51; PULSE 74
--- NOTE | 2020-09-22 04:54 | NUR ---
Removed old PureWick and applied new Purewick. She-care provided and repositioned patient. SPO2 95% on Airvo 50L. No acute respiratory distress noted throughout the shift.
--- NOTE | 2020-09-22 06:30 | NUR ---
PT ASLEEP WITH AIRVO ON AT THIS TIME. NO CONCERNS BED ALARM ON, NO OTHER CONCERNS. PT HAS BEEN NOTED TO BE NON-VERBAL, BUT THROUGH THE NIGHT, THE PATIENT HAS ANSWERED YES OR NO QUESTIONS. NO FURTHER CONCERNS.
[2020-09-22 07:06] LABS: HEMOGLOBIN 11.5 g/dl (12.5-16.0); MEAN CELL VOLUME 81 fl (80.0-100.0); MEAN CORPUSCULAR HEMOGLOBIN 26 pg (27.0-31.0); MEAN CORPUSCULAR HGB CONC 33 g/dl (33.0-37.0); MEAN PLATELET VOLUME 10.5 fl (7.4-10.4); PLATELET COUNT 362 K/mm3 (130-400); RED BLOOD COUNT 4.35 M/mm3 (4.10-5.30); REDCELL DISTRIBUTION WIDTH-CV 15.3 % (11.5-14.5)
[2020-09-22 07:09] LABS: HEMATOCRIT 35.1 % (37.0-47.0)
[2020-09-22 07:20] LABS: CALCIUM 9.2 mg/dL (8.4-10.2); CREATININE, serum 0.83 (0.52-1.25); POTASSIUM 3.5 mmol/L (3.4-5.0)
[2020-09-22 08:11] VITALS: BP 146/101; PULSE 69; TEMP 97.8
[2020-09-22 08:32] LABS: BAND 10 % (0-10); LYMPHOCYTE 9 % (20.0-51.0); NEUTROPHILS 78 % (42.0-75.2); PLATELET ESTIMATE NORMAL (NORMAL)
--- NOTE | 2020-09-22 08:33 | NUR ---
PATIENT ON 80%FIO2 AND 55 LPM, SPO2 90%.
[2020-09-22 11:59] VITALS: BP 120/53; PULSE 61; TEMP 98.5
--- NOTE | 2020-09-22 14:39 | NUR ---
Ems Driver faxed updates to [facility] the [facility].
[2020-09-22 15:40] VITALS: BP 125/61; PULSE 67; TEMP 98.2
[2020-09-22 17:47] VITALS: BP 138/68; PULSE 73; TEMP 98.7
[2020-09-22 18:03] VITALS: BP 96/72
--- NOTE | 2020-09-22 18:07 | NUR ---
PT TOLERATED FIRST 15 MINUTES OF INFUSION, TURNED RATE UP. PT IS BEING AGGRESSIVE, MITS PLACED ON PT TO KEEP PT FROM MESSING WITH THE PICC LINE AND LINES TO PLASMA WELL ABX. WILL CONTINUE TO MONITOR PATIENT.
--- NOTE | 2020-09-22 19:18 | NUR ---
REPORT GIVEN TO MONO ESPINAL
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
[2020-09-23 04:56] VITALS: BP 130/68; PULSE 70; TEMP 98.1
--- NOTE | 2020-09-23 06:07 | NUR ---
Patient aggressive toward staff throughout the night. Refusing all nursing care and PO meds. Currently on Airvo 55L and 70%. No acute respiratory distress noted. Fall precaution and contact precaution maintained. Will give report to day shift nurse.
[2020-09-23 07:11] LABS: BASO % 0.1 % (0.0-2.0); GRAN # 12.9 (1.4-6.5); HEMATOCRIT 37.1 % (37.0-47.0); LYMPH # 1.5 (1.2-3.4); LYMPH % 9.7 % (20.0-51.0); MEAN CELL VOLUME 82 fl (80.0-100.0); MEAN CORPUSCULAR HEMOGLOBIN 27 pg (27.0-31.0); MEAN CORPUSCULAR HGB CONC 32 g/dl (33.0-37.0); MONO # 0.8 (0.1-0.6); MONO % 5.1 % (1.7-9.3); PLATELET COUNT 408 K/mm3 (130-400); RED BLOOD COUNT 4.53 M/mm3 (4.10-5.30); REDCELL DISTRIBUTION WIDTH-CV 15.5 % (11.5-14.5)
[2020-09-23 07:24] LABS: CALCIUM 9.2 mg/dL (8.4-10.2); CREATININE, serum 0.86 (0.52-1.25); POTASSIUM 4.5 mmol/L (3.4-5.0)
[2020-09-23 08:06] VITALS: BP 115/64; PULSE 79; TEMP 99.3
--- NOTE | 2020-09-23 09:38 | NUR ---
MORNING MEDS given crushed in pudding. pt only took half of crushed dose. little interraction but said "no" to breakfast, remaining medication and water. did allow eye drops and facial cleansing. purewick on and draining. pt lying with arms crossed on chest and resistant to cares. was set up for breakfast but refused and would not open mouth. denied pain. did not answer orientation questions. on airvo 55L 79%. lungs diminished. no cough noted. eyes open. would mutter "dont do that" when moved. mitts on. bed alarm also on. PIC to RUE easy flush. pt would not tolerate arm measurement but no obbvious edema noted
[2020-09-23 11:49] VITALS: BP 123/60; PULSE 80; TEMP 100.7
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
--- NOTE | 2020-09-23 14:22 | NUR ---
Ecmo Specialist faxed updates to [facility] the [facility].
[2020-09-23 16:00] VITALS: BP 107/78; PULSE 76; TEMP 99.5
--- NOTE | 2020-09-23 18:00 | NUR ---
PT ASSISTED WITH DINNER AND DRANK 2 SIPS OF ENSUIRE AND ATE 4 BITES OF VANILLA ICE CREAM. REFUSED ALL OTHER OPTIONS. PUREWICK CHANGED AWAITING UA SAMPLE. DENIED PAIN. FLACC SCALE ZERO. GIVEN BED BATH BY OT EARLIER. LINES AND GOWN CHANGED
--- NOTE | 2020-09-23 18:37 | NUR ---
PT VOIDED and specimen collected from clean purewick, tubing and cannister within 10 mins of voiding. sample sent to lab.
[2020-09-23 18:41] LABS: COLLECTION METHOD CLEAN CATCH
[2020-09-23 19:03] LABS: PH 5 (5-8); URINE APPEARANCE Hazy; URINE BACTERIA None Seen /hpf; URINE BILIRUBIN Negative (NEGATIVE); URINE BLOOD Negative (NEGATIVE); URINE COLOR Yellow; URINE GLUCOSE Negative (NEGATIVE); URINE KETONE Trace (NEGATIVE); URINE LEUKOCYTE ESTERASE Negative (NEGATIVE); URINE NITRATE Negative (NEGATIVE); URINE PROTEIN(semi-quant) 1+ (NEGATIVE); URINE RBC 0-2 /hpf; URINE UROBILINOGEN Negative (NEGATIVE)
[2020-09-24] VITALS: BP 128/78; PULSE 83; TEMP 99.1
[2020-09-24 07:07] LABS: BASO % 0.2 % (0.0-2.0); EOS % 0.1 % (0-4.0); GRAN % 84.3 % (42.2-75.2); HEMATOCRIT 38.3 % (37.0-47.0); HEMOGLOBIN 12.2 g/dl (12.5-16.0); LYMPH # 1.5 (1.2-3.4); LYMPH % 8.1 % (20.0-51.0); MEAN CELL VOLUME 82 fl (80.0-100.0); MEAN CORPUSCULAR HEMOGLOBIN 26 pg (27.0-31.0); MEAN CORPUSCULAR HGB CONC 32 g/dl (33.0-37.0); MEAN PLATELET VOLUME 10.1 fl (7.4-10.4); MONO # 1.1 (0.1-0.6); MONO % 5.9 % (1.7-9.3); PLATELET COUNT 394 K/mm3 (130-400); RED BLOOD COUNT 4.65 M/mm3 (4.10-5.30); REDCELL DISTRIBUTION WIDTH-CV 15.9 % (11.5-14.5)
[2020-09-24 07:39] LABS: CALCIUM 9.3 mg/dL (8.4-10.2); CREATININE, serum 0.96 (0.52-1.25); POTASSIUM 4.5 mmol/L (3.4-5.0)
[2020-09-24 07:55] VITALS: BP 127/66; PULSE 83; TEMP 99.6
--- NOTE | 2020-09-24 09:41 | NUR ---
SHIFT REPORT received. pt resting in bed with eyes awake. appears calm. bed alarm on
--- NOTE | 2020-09-24 11:06 | NUR ---
PT CONFUSED WITH MINIMAL SPEECH. TOOK ONE BITE PUDDING, 3 SISPS ORANGE JUICE AND 3/4 HALF PINT MILK. REFUSED TO TASTE OR INGEST CRUSHED MEDS. REFUSED ORAL CARE. TURNED TO LEFT SIDE, PUREWICK DRAINING. URINE CLEAR RUBIA. CONTINUES ON AIRVO. DOUBLE LUMEN picc no drawback but pt unwilling to adjust arms. heel protetors on, mitts on. Given break from mitts while nurse in room but pt was fidgeting with Airvo thus put back on. bed alarm on. call light within reach. lungs diminished bases.
[2020-09-24 12:00] VITALS: BP 136/87; PULSE 92; TEMP 98.3
--- NOTE | 2020-09-24 14:49 | NUR ---
STEFANIA/Mylene Anita called and given pt progress update. made aware of pts refusal for care and meals. She mentioned that with pt's baseline parkinsons, she is normally very slow to respond to questions and requests thus, requires extra time. She apparently shuts down when she is rushed. Anita also states pt's baseline was pleasantly confused, appropriate speech and interractions. She was able to recognize faces and names. pt currently minimal to no speech even with extra time. on-call Nurse from [facility] the [facility] also called and was updated. She gave her work phone # [phone] Jeannine Quintana.
--- NOTE | 2020-09-24 15:03 | NUR ---
PT OFFERED FLUIDS BUT would not open mouth to eat or drink anything.
[2020-09-24 16:00] VITALS: BP 136/68; PULSE 94; TEMP 99.9
--- NOTE | 2020-09-24 17:54 | NUR ---
ATTEMPTED TO ASSIST PT EAT dinner but she would not open mouth. she did allow for partial oral care. tremors to josué hands undoubtedly from her parkinsons as she has been refusing her meds. MItss taken off for hand cleansing and dinner. pt did not attempt to intefere with equipment for 30 mins. camera turned on in room and will attempt to connect to monitor. bed alarm on.IV ABX infusing as ordered. Airvo intact
--- NOTE | 2020-09-24 19:06 | NUR ---
RT called in regards to initiating Bipap. states will administed breathing treatment and if pt is able to tolerate will see about putting on bipap. Pt tolerating mitts off thus far. on baby monitor.
--- NOTE | 2020-09-24 19:56 | NUR ---
PT AGITATED AND DOES NOT TOLERATE MASK. DOING WELL ON AIRVO 55L, 75% WITH OXYGEN SAT OF 96%, RR OF 20 AND HEART RATE OF 82
[2020-09-24 23:47] VITALS: BP 100/55; PULSE 70; TEMP 98.2
[2020-09-25 04:46] VITALS: BP 120/60; PULSE 73; TEMP 98.2
[2020-09-25 07:10] LABS: HEMATOCRIT 38.3 % (37.0-47.0); HEMOGLOBIN 12.1 g/dl (12.5-16.0); MEAN CELL VOLUME 83 fl (80.0-100.0); MEAN CORPUSCULAR HEMOGLOBIN 26 pg (27.0-31.0); MEAN CORPUSCULAR HGB CONC 32 g/dl (33.0-37.0); MEAN PLATELET VOLUME 10.3 fl (7.4-10.4); PLATELET COUNT 442 K/mm3 (130-400); RED BLOOD COUNT 4.61 M/mm3 (4.10-5.30)
[2020-09-25 07:20] LABS: CALCIUM 9.4 mg/dL (8.4-10.2); CREATININE, serum 1.07 (0.52-1.25); POTASSIUM 4.6 mmol/L (3.4-5.0)
[2020-09-25 08:00] VITALS: BP 115/67; PULSE 74; TEMP 97.6
--- NOTE | 2020-09-25 08:25 | NUR ---
SHIFT REPORT received. pt resting in bed. eyes open. no s/s distress. pt did not attempt to remove Airvo overnight and appears calm this AM. Baby monitor discontinued. call light within birdie and bed alarm. pt took night meds per night shsift thus will attempt AM meds
[2020-09-25 09:49] LABS: ANISOCYTOSIS 1+; LYMPHOCYTE 17 % (20.0-51.0); NEUTROPHILS 78 % (42.0-75.2); OVALOCYTES 1+; PLATELET ESTIMATE INCREASED (NORMAL)
--- NOTE | 2020-09-25 11:27 | NUR ---
MORNING MEDS GIVEN. pt required frequent reorientation as to who nurse was and the activity. took 7 bites to finish crushed meds in cup. She drank 1.5 water cup, half a pudding cup and 4 bites of oatmeal. Purewick changed. urine dark yellow, clear. answered yes/no with nodding head. reported some pain but unable to say where. tylenol given. repositioned. Worked with therapy for a bit and was apparently able to follow some direction. miild josué arm tremors
[2020-09-25 11:34] VITALS: BP 124/66; PULSE 74; TEMP 98.4
--- NOTE | 2020-09-25 13:56 | NUR ---
Patient remains on elevated O2. Plan is still [facility] the [facility]. SW to continue to follow.
--- NOTE | 2020-09-25 14:38 | NUR ---
PT ASSISTED WITH LUNCH BY PAINTING TECHNICIAN. ATE approx 10%. drank 200mls water and sips of nutritional supplement. purewick changed. reefused 1400 mirapex. pt mildly aggitated with turns. appears back to increased confusion and uncooperation. call light within reach. bed alarm on. Airvo on. will cont to monitor.
--- NOTE | 2020-09-25 14:47 | NUR ---
pt's DPOA\ niece called and updated on pt's status and events. no new concerns voiced.
[2020-09-25 15:46] VITALS: BP 102/73; PULSE 74; TEMP 99.3
[2020-09-25 20:55] VITALS: BP 110/68; PULSE 76; TEMP 99.1
[2020-09-25 22:03] VITALS: BP 110/68; PULSE 76; TEMP 99.1
[2020-09-26 04:45] VITALS: BP 142/120; PULSE 127; TEMP 99
[2020-09-26 08:10] LABS: HEMATOCRIT 37.5 % (37.0-47.0); HEMOGLOBIN 11.8 g/dl (12.5-16.0); MEAN CELL VOLUME 83 fl (80.0-100.0); MEAN CORPUSCULAR HEMOGLOBIN 26 pg (27.0-31.0); MEAN CORPUSCULAR HGB CONC 32 g/dl (33.0-37.0); MEAN PLATELET VOLUME 10.7 fl (7.4-10.4); PLATELET COUNT 489 K/mm3 (130-400); REDCELL DISTRIBUTION WIDTH-CV 15.9 % (11.5-14.5)
[2020-09-26 08:23] LABS: CALCIUM 9.3 mg/dL (8.4-10.2); CREATININE, serum 1.04 (0.52-1.25); POTASSIUM 4.5 mmol/L (3.4-5.0)
[2020-09-26 08:47] LABS: BAND 2 % (0-10); LYMPHOCYTE 9 % (20.0-51.0); METAMYELOCYTE 1 % (0-0); NEUTROPHILS 78 % (42.0-75.2); OVALOCYTES 1+; PLATELET ESTIMATE INCREASED (NORMAL)
[2020-09-26 08:54] VITALS: BP 126/72; PULSE 82; TEMP 100.3
--- NOTE | 2020-09-26 10:55 | NUR ---
MORNING MEDS GIVEN crushed in chocolate pudding. pt ate 3/4 of meds on spoon. for breakfast she drank 200ml juice, 100 mls milk, 1 cup yoghurt and a few bites of oatmeal. double lumen PICC flushes with no drawback. purewick intact. Airvo continues on 55L
[2020-09-26 13:17] VITALS: BP 127/80; PULSE 79; TEMP 100.1
--- NOTE | 2020-09-26 16:34 | NUR ---
Hospitalist notified this Passenger Locomotive Engineer regarding the patient's discharge disposition. He is recommending LTACH. NEW faxed referrals to Vega with [facility] and Faheem with [facility]. NEW contacted Vega regarding referral. NEW contacted Faheem regarding referral, left message.
[2020-09-26 16:52] VITALS: BP 120/85; PULSE 79; TEMP 100.1
--- NOTE | 2020-09-26 18:59 | NUR ---
EOS NOTE: PT status unchanged. 10% meals eaten. occasionally refuses meds. bed bath given. also refusing oral care. PICC did eventually have draw back. Turned Q2h.
[2020-09-26 20:38] VITALS: BP 143/99; PULSE 110; TEMP 98.9
[2020-09-27 00:27] VITALS: BP 143/92; PULSE 81; TEMP 98.3
[2020-09-27 03:16] VITALS: BP 152/119; PULSE 127; TEMP 98.5
[2020-09-27 08:05] LABS: HEMOGLOBIN 11.5 g/dl (12.5-16.0); MEAN CELL VOLUME 85 fl (80.0-100.0); MEAN CORPUSCULAR HEMOGLOBIN 27 pg (27.0-31.0); MEAN CORPUSCULAR HGB CONC 31 g/dl (33.0-37.0); MEAN PLATELET VOLUME 10.8 fl (7.4-10.4); PLATELET COUNT 438 K/mm3 (130-400); RED BLOOD COUNT 4.31 M/mm3 (4.10-5.30); REDCELL DISTRIBUTION WIDTH-CV 16.3 % (11.5-14.5)
[2020-09-27 08:11] LABS: HEMATOCRIT 36.7 % (37.0-47.0)
[2020-09-27 08:22] LABS: CALCIUM 9.5 mg/dL (8.4-10.2); CREATININE, serum 1.02 (0.52-1.25); POTASSIUM 4.5 mmol/L (3.4-5.0)
[2020-09-27 08:43] VITALS: BP 143/76; PULSE 86; TEMP 98.9
[2020-09-27 08:51] LABS: ANISOCYTOSIS 1+; BAND 1 % (0-10); LYMPHOCYTE 12 % (20.0-51.0); NEUTROPHILS 84 % (42.0-75.2); PLATELET ESTIMATE INCREASED (NORMAL)
[2020-09-27 12:16] VITALS: BP 154/66; PULSE 86; TEMP 100
[2020-09-27 16:00] VITALS: BP 124/75; PULSE 79; TEMP 99.3
[2020-09-27 19:22] VITALS: BP 131/76; PULSE 71; TEMP 97.6
--- NOTE | 2020-09-27 20:10 | NUR ---
Patient assessed at this time. Alert oriented to self. Unable to make needs known. High fall risk precautions in place, and staff anticipates needs. Double lumen PICC to LUE. On Airvo at 50L 54%. LS CTA in upper lobes, diminished in lower. Respirations even and unlabored. HRR. Capillary refill less than 3 seconds. Non-tenting skin turgor. BSAx4. Abdomen soft and non-tender. No edema. Patient not taking medications, drinking, or eatting for this nurse. Resting in bed with call light within reach.
--- NOTE | 2020-09-27 22:05 | NUR ---
Spoke with STEFANIA Howard. Interested in putting patient on palliative care/hospice. Email sent to palliative care nurse and requested to call Anita to discuss.
[2020-09-28 12:09] VITALS: BP 130/75; PULSE 72; TEMP 97.7
[2020-09-28 12:31] LABS: HEMATOCRIT 35.4 % (37.0-47.0); HEMOGLOBIN 11.2 g/dl (12.5-16.0); MEAN CELL VOLUME 85 fl (80.0-100.0); MEAN CORPUSCULAR HEMOGLOBIN 27 pg (27.0-31.0); MEAN CORPUSCULAR HGB CONC 32 g/dl (33.0-37.0); MEAN PLATELET VOLUME 10.9 fl (7.4-10.4); PLATELET COUNT 395 K/mm3 (130-400); RED BLOOD COUNT 4.18 M/mm3 (4.10-5.30); REDCELL DISTRIBUTION WIDTH-CV 16.3 % (11.5-14.5)
[2020-09-28 13:10] LABS: CALCIUM 9.3 mg/dL (8.4-10.2); CREATININE, serum 0.89 (0.52-1.25); POTASSIUM 4.6 mmol/L (3.4-5.0)
[2020-09-28 13:25] LABS: BAND 4 % (0-10); LYMPHOCYTE 10 % (20.0-51.0); METAMYELOCYTE 2 % (0-0); NEUTROPHILS 77 % (42.0-75.2); OVALOCYTES 1+; PLATELET ESTIMATE NORMAL (NORMAL)
--- NOTE | 2020-09-28 13:55 | NUR ---
Zoom call held with Robby Lancaster and Jimbo Matt and Pablo Matt on the call and Liliam Pond RN and Michelle in the room. Pt speaks normally in a very soft voice but she was able to speak some with her family. She told them she was not having pain and would try to eat better. She seemed very pleased to see her family members and at this time the family would like to continue supportive measures and are aware that she may require a stay at an LTAC until her oxygen needs can be managed in a usp. Pt did eat more of her lunch and comopleted her sherbert. She did drink some of her iced tead which is a preferred beverage of hers.
--- NOTE | 2020-09-28 15:49 | NUR ---
There was a palliative care consult ordered for the patient. Liliam Salty attended a virtual meeting with the patient and her DPOA-HC. The patient would like to continue with care and understands the next step is LTACH. NEW attempted to contact the patient via room phone, she did not answer. NEW contacted the patient's niece/DPOA-HC Anita to discuss the above information. She was agreeable to LTACH since the patient wants to continue care. NEW contacted Vega with [facility] regarding the referral. He will have a team meeting on 09/29 regarding discharges at their facility. Vega discussed ensuring the patient oxygen needs are accecptable for transport. SW to staff with RT regarding oxygen needs for the patient. NEW collaborated the above information with the patient's nurse.
[2020-09-28 16:00] VITALS: BP 140/76; PULSE 79; TEMP 98.3
--- NOTE | 2020-09-28 20:15 | NUR ---
Patient assessed at this time. Alert and oriented to self. Needs anticipated by staff. No outward s/sx of pain or discomfort noted, such as facial grimacing, moaning, etc. Double lumen PICC to LUE. Fluids running per orders. Respirations even and unlabored. On oxygen at 12 L/min via oxymask. LS CTA in upper lobes, diminished in lower. HRR. Capillary refill less than 3 seconds. Non-tenting skin turgor. BSAx4. Abdomen soft and non-tender. No edema. Patient did take medications crushed in chocolate ice cream. High fall risk precautionsin place. Purewick external catheter in place. Resting in bed with call light within reach.
[2020-09-28 20:49] VITALS: BP 109/60; PULSE 73; TEMP 98
[2020-09-29 00:08] VITALS: BP 130/86; PULSE 76; TEMP 97.6
--- NOTE | 2020-09-29 05:11 | NUR ---
Patient has been resting in bed. Continues on oxygen at 12 L/min via oxymask. Cares provided by staff. High fall risk precautions in place. Call light within reach.
[2020-09-29 07:17] VITALS: BP 166/80; PULSE 74; TEMP 98.2
[2020-09-29 07:36] LABS: HEMOGLOBIN 11.2 g/dl (12.5-16.0); MEAN CELL VOLUME 84 fl (80.0-100.0); MEAN CORPUSCULAR HEMOGLOBIN 27 pg (27.0-31.0); MEAN CORPUSCULAR HGB CONC 32 g/dl (33.0-37.0); MEAN PLATELET VOLUME 11.2 fl (7.4-10.4); PLATELET COUNT 337 K/mm3 (130-400); RED BLOOD COUNT 4.23 M/mm3 (4.10-5.30); REDCELL DISTRIBUTION WIDTH-CV 15.9 % (11.5-14.5)
[2020-09-29 07:41] LABS: CALCIUM 9.1 mg/dL (8.4-10.2); CREATININE, serum 0.8 (0.52-1.25); POTASSIUM 4.8 mmol/L (3.4-5.0)
[2020-09-29 07:47] LABS: HEMATOCRIT 35.4 % (37.0-47.0)
--- NOTE | 2020-09-29 09:40 | NUR ---
Vega from [facility] contacted this [facility]. He states they may have two or three discharges and may have a bed available for the patient this day. NEW faxed updates.
[2020-09-29 10:18] LABS: LYMPHOCYTE 12 % (20.0-51.0); NEUTROPHILS 87 % (42.0-75.2)
[2020-09-29 10:19] LABS: HYPOCHROMIA 1+; OVALOCYTES 1+; PLATELET ESTIMATE NORMAL (NORMAL)
--- NOTE | 2020-09-29 11:55 | NUR ---
Spoke with CARINA Lancaster by phone. She is delighted that her aunt is doing better and now is on oxymask at 12L which is quite an improvement. She will transfer to [facility] today at 2:30pm by EMS for ongoing care.
[2020-09-29 12:11] VITALS: BP 149/86; PULSE 74; TEMP 97.9
[2020-09-29 12:32] VITALS: BP 149/86; PULSE 74; TEMP 97.9
--- NOTE | 2020-09-29 14:52 | NUR ---
The patient is to discharge today, 09/29 to [facility]. Room [address] Mata accepting. [facility] will transport at 1430. The team and the patient's DPOA-HC/faizan Howard were in agreeance. SW faxed discharge orders. There are no additional needs.
--- NOTE | 2020-09-29 15:40 | NUR ---
TRANSFERRED VIA EMS TO [facility]. REPORT GIVEN. NO FURTHER CONCERNS.
== END 2020-09-29 15:40 | DRG 177 ==
LOC: COL.ER 13:18 → MEDICAL 15:19
PROVIDERS: Physician Assistant; Student in an Organized Health Care Education/Training Program; ADMIT Internal Medicine
PROC: 02HV33Z Insertion of Infusion Device into Superior Vena Cava, Percutaneous Approach (ICD-10-PCS; principal; 2020-09-21)
PROC: XW033E5 Introduction of Remdesivir Anti-infective into Peripheral Vein, Percutaneous Approach, New Technology Group 5 (ICD-10-PCS; 2020-09-21)
DX: U07.1 COVID-19 (principal); J12.82 Pneumonia due to coronavirus disease 2019; J96.01 Acute respiratory failure with hypoxia; E87.1 Hypo-osmolality and hyponatremia; N17.9 Acute kidney failure, unspecified; E87.0 Hyperosmolality and hypernatremia; G20 Parkinson's disease; F02.80 Dementia in other diseases classified elsewhere, unspecified severity, without behavioral disturbance, psychotic disturbance, mood disturbance, and anxiety; K21.9 Gastro-esophageal reflux disease without esophagitis; E78.5 Hyperlipidemia, unspecified; I10 Essential (primary) hypertension; H40.9 Unspecified glaucoma; E87.5 Hyperkalemia; N32.81 Overactive bladder; E87.8 Other disorders of electrolyte and fluid balance, not elsewhere classified; Z66 Do not resuscitate; D72.829 Elevated white blood cell count, unspecified; T38.0X5A Adverse effect of glucocorticoids and synthetic analogues, initial encounter; Z87.891 Personal history of nicotine dependence
CPT/HCPCS: 99223-AI; 99231-AI; 99232-AI; 99233-AI; 99239; C1751; J0696; J1100; J1644; J3480; J7030; J7050; J7120; Q9967

== ENCOUNTER 2021-07-05 21:09 | Emergency (ER) | payer MEDICARE, BC ==
[~2021-07-05] VITALS: Ht 167.6 cm; Wt 86.4 kg
[~2021-07-05 21:09] MED LIST changes: +DECADRON6 MG PO; +KLOR-CON SPRIN10 MEQ PO; +LASIX 20MG TABL20 MG PO; +MOTRIN 600600 MG/TAB PO; +REFRESH TEARS 330 ML OU; +ROBITUSSIN DM 105 ML PO; +ZOLOFT 100MG100 MG PO
[2021-07-05 22:06] LABS: HEMOGLOBIN 11.3 g/dl (12.5-16.0); MEAN CELL VOLUME 85 fl (80.0-100.0); MEAN CORPUSCULAR HEMOGLOBIN 28 pg (27.0-31.0); MEAN CORPUSCULAR HGB CONC 33 g/dl (33.0-37.0); MEAN PLATELET VOLUME 10.4 fl (7.4-10.4); PLATELET COUNT 224 K/mm3 (130-400); RED BLOOD COUNT 4.05 M/mm3 (4.10-5.30); REDCELL DISTRIBUTION WIDTH-CV 15.4 % (11.5-14.5)
[2021-07-05 22:09] LABS: HEMATOCRIT 34.3 % (37.0-47.0)
[2021-07-05 22:22] LABS: ALBUMIN 3.2 gm/dL (3.4-4.8); BILIRUBIN,TOTAL 0.9 mg/dL (0.2-1.2); CALCIUM 9.2 mg/dL (8.4-10.2); CREATININE, serum 1.08 mg/dL (0.57-1.11); POTASSIUM 3.8 mmol/L (3.5-4.5); TOTAL PROTEIN 6.7 gm/dL (6.2-8.1)
[2021-07-05 22:28] LABS: TROPONIN-I 0.02 ng/mL (0.00-0.033)
[2021-07-05 22:31] LABS: BAND 7 % (0-10); LYMPHOCYTE 6 % (20.0-51.0); NEUTROPHILS 86 % (42.0-75.2); PLATELET ESTIMATE NORMAL (NORMAL)
[2021-07-05 22:32] LABS: ANISOCYTOSIS 1+; HYPOCHROMIA 1+; OVALOCYTES 1+
[2021-07-06 00:12] VITALS: BP 137/74; PULSE 52; TEMP 98.1
== END 2021-07-06 00:12 | disposition home or self-care (01) ==
LOC: COL.ER 21:09
PROVIDERS: Student in an Organized Health Care Education/Training Program
DX: R55 Syncope and collapse (principal); R94.5 Abnormal results of liver function studies; I10 Essential (primary) hypertension; F32.A Depression, unspecified; G20 Parkinson's disease; F02.80 Dementia in other diseases classified elsewhere, unspecified severity, without behavioral disturbance, psychotic disturbance, mood disturbance, and anxiety; K21.9 Gastro-esophageal reflux disease without esophagitis; H40.9 Unspecified glaucoma; Z79.899 Other long term (current) drug therapy
CPT/HCPCS: J7030